=== PATIENT | female | born 1940 | race Caucasian/White ===

== ENCOUNTER 2016-07-02 08:49 | Outpatient (CLI) | payer MEDICARE, OTHER ==
[2012-04-14 10:46] VITALS: BP 127/70
== END 2016-07-02 08:50 ==
LOC: LAB 08:49
PROVIDERS: ATTEND Clinical Nurse Specialist Medical-Surgical
DX: M81.0 Age-related osteoporosis without current pathological fracture (principal); R26.9 Unspecified abnormalities of gait and mobility; Z87.310 Personal history of (healed) osteoporosis fracture
CPT/HCPCS: 36415; 82306; 82310; 83970

== ENCOUNTER 2017-10-10 11:00 | Emergency (ER) | payer MEDICARE, OTHER ==
[2017-10-10 11:21] VITALS: BP 135/67
--- NOTE | 2017-10-10 11:32 | ED Physician Documentation ---
General Adult - HPI Stated Complaint: RASH Chief Complaint: General Adult Onset: days ago Timing: still present Severity: mild Further Comments: yes (Pt is a 77 yo female with a rash on upper chest and also a small area on face. Pt had been pruning gordon, but can think of no other possible exposure. Rash is pruritic.) - ROS CONST: no problems EYES/ENT: none CVS/RESP: none GI/: none MS/SKIN/LYMPH: rash - PAST HX Past History: other (HLD, Thyroid d/o) Allergies/Adverse Reactions: Allergies Allergy/AdvReac Type Severity Reaction Status Date / Time Penicillins Allergy Verified 10/10/17 11:22 Home Medications: Ambulatory Orders Medication Instructions Recorded Anastrozole [Arimidex] 1 mg D 10/10/17 Ascorbic Acid [Vitamin C] 500 mg D 10/10/17 Calcium Carbonate/Vitamin D3 1 each D 10/10/17 [Calcium 500-Vit D3 600 Caplet] Gabapentin 300 mg BID 10/10/17 Levothyroxine Sodium [Synthroid] 50 mcg D 10/10/17 Loratadine [Children's Claritin] 10 mg D 10/10/17 Meloxicam 15 mg BIDHS 10/10/17 Multivitamin [Zoo Chews] 1 each D 10/10/17 - SOCIAL HX Smoking History: non-smoker - FAMILY HX Family History: No - VITAL SIGNS Vital Signs: Vital Signs Temp Pulse Resp BP Pulse Ox 97.6 F 72 18 135/67 97 10/10/17 11:18 10/10/17 11:18 10/10/17 11:18 10/10/17 11:18 10/10/17 11:18 - REVIEWED ASSESSMENTS Nursing Assessment Reviewed: Yes Vitals Reviewed: Yes Progress - Progress Progress: Rx Triamcinolone 0.1% cream. Apply to affected areas two or three times daily. General Adult Physical Exam - PHYSICAL EXAM GENERAL APPEARANCE: no distress EENT: pharynx normal NECK: normal inspection, supple RESPIRATORY: no resp distress, chest non-tender, breath sounds normal CVS: reg rate & rhythm, heart sounds normal BACK: normal inspection SKIN: other (patch of erythema on upper chest, crosses midline; a few similar dime-size areas on face.) NEURO: oriented X3, motor nml, sensation nml Discharge Clincal Impression: Rash Referrals: Akila,Savannah G, PRN [Primary Care Provider] - Condition: Good Disposition: 01 HOME, SELF-CARE Decision to Admit: NO Decision Time: 11:31
== END 2017-10-10 11:45 | disposition home or self-care (01) ==
LOC: ED 11:00
DX: R21 Rash and other nonspecific skin eruption (principal)
CPT/HCPCS: 99282

== ENCOUNTER 2018-03-06 08:10 | Outpatient (CLI) | payer MEDICARE, OTHER ==
[2018-03-06 09:37] LABS: eGFR (Non-African) > 60
== END 2018-03-06 08:12 ==
LOC: LAB 08:10
PROVIDERS: ATTEND Clinical Nurse Specialist Medical-Surgical
DX: M81.0 Age-related osteoporosis without current pathological fracture (principal); R26.9 Unspecified abnormalities of gait and mobility; Z87.310 Personal history of (healed) osteoporosis fracture
CPT/HCPCS: 36415; 80053; 82306; 82330; 83735; 84100